=== PATIENT | female | born 1970 | race Caucasian/White ===

== ENCOUNTER → 2019-03-09 | Outpatient (CLI) | payer OTHER, MEDICARE ==
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
== END ==
LOC: RAD 13:12
PROVIDERS: ATTEND Nurse Practitioner
DX: S89.91XD Unspecified injury of right lower leg, subsequent encounter (principal); M17.11 Unilateral primary osteoarthritis, right knee; X58.XXXD Exposure to other specified factors, subsequent encounter
CPT/HCPCS: 73700

== ENCOUNTER → 2019-03-11 | Outpatient (CLI) | payer OTHER, MEDICARE ==
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
== END ==
LOC: RAD FS 15:02
PROVIDERS: ATTEND Nurse Practitioner
DX: M25.522 Pain in left elbow (principal); M25.512 Pain in left shoulder; Z87.828 Personal history of other (healed) physical injury and trauma; Z95.0 Presence of cardiac pacemaker
CPT/HCPCS: 73030; 73080

== ENCOUNTER → 2019-04-08 | Outpatient (CLI) | payer MEDICARE, MEDICAID ==
--- NOTE | 2019-04-08 12:59 | Diagnostic Imaging Report ---
INDICATION: CHF, DYSPNEA, HYPERTROPHIC CARDIOMYOPAHTY COMPARISON: None FINDINGS: Frontal and lateral views of the chest demonstrate normal heart size and pulmonary vascularity. Left-sided AICD is noted. The lungs are clear. There are no signs of infiltrate, pleural effusions or pneumothoraces. The visualized osseous structures show no acute abnormalities. IMPRESSION: 1. No acute process. No signs of infiltrates, effusions or pneumothoraces. Dictated by: Dictated on workstation # [id number]
[2019-04-08 14:03] LABS: ALANINE AMINOTRANSFERASE 17 U/L (0-55); ALKALINE PHOSPHATASE 128 U/L (40-136); BILIRUBIN,TOTAL 0.3 MG/DL (0.1-1.0); BUN/CREATININE RATIO 23; CALCIUM 10.2 MG/DL (8.5-10.1); CARBON DIOXIDE 21 MMOL/L (21-32); CHLORIDE 102 MMOL/L (98-107); CREATININE SERUM 0.83 MG/DL (0.60-1.30); GFR ESTIMATED > 60; GLUCOSE 106 MG/DL (70-105); MAGNESIUM 1.9 MG/DL (1.6-2.4); POTASSIUM 3.5 MMOL/L (3.6-5.0); SODIUM 138 MMOL/L (135-145)
[2019-04-08 14:04] LABS: ALBUMIN 4.9 GM/DL (3.2-4.5); TOTAL PROTEIN 7.9 GM/DL (6.4-8.2)
== END ==
LOC: RAD FS 12:37
PROVIDERS: ATTEND Nurse Practitioner
DX: I50.9 Heart failure, unspecified (principal); I42.2 Other hypertrophic cardiomyopathy; Z95.810 Presence of automatic (implantable) cardiac defibrillator
CPT/HCPCS: 36415; 71046; 80053; 83735; 83880

== ENCOUNTER → 2019-04-27 | Outpatient (CLI) | payer MEDICAID, MEDICARE, OTHER ==
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
== END ==
LOC: RAD 08:32
PROVIDERS: ATTEND Nurse Practitioner
DX: M81.0 Age-related osteoporosis without current pathological fracture (principal); I50.9 Heart failure, unspecified; I42.2 Other hypertrophic cardiomyopathy; R06.00 Dyspnea, unspecified
CPT/HCPCS: 77080; 93306

== ENCOUNTER → 2019-07-16 | Outpatient (CLI) | payer MEDICAID, MEDICARE | LOC: LAB 12:38 | DX: J45.40 Moderate persistent asthma, uncomplicated (principal) | CPT/HCPCS: 36415; 86003 ==

== ENCOUNTER → 2019-07-16 | Outpatient (CLI) | payer MEDICAID, MEDICARE | LOC: LAB 12:40 | PROVIDERS: ATTEND Nurse Practitioner | DX: Z51.81 Encounter for therapeutic drug level monitoring (principal); Z79.899 Other long term (current) drug therapy | CPT/HCPCS: 36415; 80162 ==

== ENCOUNTER → 2019-07-30 | Outpatient (CLI) | payer MEDICARE | LOC: LAB 14:40 | PROVIDERS: ATTEND Nurse Practitioner | DX: Z51.81 Encounter for therapeutic drug level monitoring (principal); Z79.899 Other long term (current) drug therapy | CPT/HCPCS: 36415; 80162 ==

== ENCOUNTER → 2019-08-31 | Outpatient (CLI) | payer MEDICARE | LOC: LAB 12:42 | PROVIDERS: ATTEND Nurse Practitioner | DX: Z01.89 Encounter for other specified special examinations (principal); Z79.899 Other long term (current) drug therapy | CPT/HCPCS: 36415; 80162 ==

== ENCOUNTER 2020-11-07 07:45 | Outpatient (CLI) | payer MEDICARE ==
[~2020-11-07] VITALS: Ht 160 cm; Wt 66.0 kg
[2020-11-07 14:18] VITALS: BP 125/80
[2020-11-07] MEDS ORDERED: IVAB5TAB PO (15:05)
[2020-11-07 15:12] LABS: BASOPHILS % (AUTO) 0 % (0-10); EOSINOPHILS # (AUTO) 0.1 10^3/uL (0.0-0.3); EOSINOPHILS % (AUTO) 2 % (0-10); HEMATOCRIT 38 % (35-52); LYMPHOCYTES # (AUTO) 1.7 10^3/uL (1.0-4.0); LYMPHOCYTES % (AUTO) 20 % (12-44); MEAN CORPUSCULAR HEMOGLOBIN 31 pg (25-34); MEAN CORPUSCULAR HGB CONC 34 g/dL (32-36); MEAN CORPUSCULAR VOLUME 92 fL (80-99); MEAN PLATELET VOLUME 9.4 fL (9.0-12.2); MONOCYTES # (AUTO) 0.7 10^3/uL (0.0-1.0); MONOCYTES % (AUTO) 8 % (0-12); NEUTROPHILS # (AUTO) 6.2 10^3/uL (1.8-7.8); NEUTROPHILS % (AUTO) 71 % (42-75); PLATELET COUNT 257 10^3/uL (130-400); WHITE BLOOD COUNT 8.7 10^3/uL (4.3-11.0)
[2020-11-07 15:24] LABS: POTASSIUM 3.1 MMOL/L (3.6-5.0)
[2020-11-07 15:25] LABS: CALCIUM 9.4 MG/DL (8.5-10.1)
[2020-11-07] MEDS ORDERED: MONT10TA21 PO (15:29)
[2020-11-07] MEDS ORDERED: MULT-141 PO (15:29)
[2020-11-07] MEDS ORDERED: SPIR50TA4 PO (15:29)
[2020-11-07] MEDS ORDERED: LORA-405 SL (15:29)
[2020-11-07] MEDS ORDERED: FAMO40TA6 PO (15:29)
[2020-11-07] MEDS ORDERED: CYCL10TA9 PO (15:29)
[2020-11-07] MEDS ORDERED: MAGN250T13 PO (15:29)
[2020-11-07] MEDS ORDERED: LEVA1.2543 IH (15:29)
[2020-11-07] MEDS ORDERED: FLUT9.9S NSEACH (15:29)
[2020-11-07] MEDS ORDERED: ONDA4TAB11 PO (15:29)
[2020-11-07] MEDS ORDERED: VITA1TAB17 PO (15:29)
[2020-11-07] MEDS ORDERED: POTA20TA8 PO (15:29)
[2020-11-07] MEDS ORDERED: DIGO125T3 PO (15:29)
[2020-11-07] MEDS ORDERED: BIOT5000 PO (15:29)
[2020-11-07] MEDS ORDERED: NF-XOP-HFA INH (15:29)
[2020-11-07] MEDS ORDERED: TORS20TA3 PO (15:29)
[2020-11-07] MEDS ORDERED: CARV3.122 PO (15:29)
[2020-11-07] MEDS ORDERED: LORA10TA7 PO (15:29)
[2020-11-07] MEDS ORDERED: AMIT50TA3 PO (15:29)
[2020-11-07] MEDS ORDERED: ASPI-808 PO (15:29)
[2020-11-07 15:30] LABS: CREATININE SERUM 1.21 MG/DL (0.60-1.30)
== END 2020-11-07 15:33 | disposition home or self-care (01) ==
LOC: PREOP 07:45
PROVIDERS: ATTEND Otolaryngology Otolaryngology/Facial Plastic Surgery
DX: Z01.812 Encounter for preprocedural laboratory examination (principal); Z01.810 Encounter for preprocedural cardiovascular examination; H65.20 Chronic serous otitis media, unspecified ear
CPT/HCPCS: 36415; 80048; 85025; 87081; 93005

== ENCOUNTER 2020-11-10 07:37 | Day surgery (SDC) | payer MEDICAID, MEDICARE ==
[~2020-11-10] VITALS: Ht 160 cm; Wt 66.0 kg
[2020-11-10] VITALS (8 sets, daily range): BP systolic 100–129; BP diastolic 63–98
--- NOTE | 2020-11-10 07:29 | Progress Note-Pre Operative ---
Pre-Operative Progress Note H&P Reviewed The H&P was reviewed, patient examined and no changes noted. Date Seen by Provider: Nov 10, 2020 Time Seen by Provider: 07:30 Date H&P Reviewed: Nov 10, 2020 Time H&P Reviewed: 07:30 Pre-Operative Diagnosis: ADELINE Pimentel MD Nov 10, 2020 07:29
--- NOTE | 2020-11-10 07:30 | Progress Note-Post Operative ---
Post-Operative Progess Note Surgeon (s)/Gimp Buttonhole Machine Operator (s) Surgeon ADELINE REHMAN MD Gimp Buttonhole Machine Operator n/a Pre-Operative Diagnosis Bilat RAMÓN Post-Operative Diagnosis same Post-Op Procedure Note Date of Procedure: Nov 10, 2020 Name of Procedure Performed: Jazzmine MELGAR Description & Findings Description and Findings: n/a Anesthesia Type mask Estimated Blood Loss minimal Packing none. Specimen(s) collected/removed none ADELINE REHMAN MD Nov 10, 2020 07:30
[~2020-11-10 07:37] MED LIST: AMIT50TA3 PO; APAP 325 MG/10.15 ML LIQ (TYLENOL) UDC PO PRN; ASPI-808 PO; BIOT5000 PO; CARV3.122 PO; CYCL10TA9 PO; DIGO125T3 PO; FAMO40TA6 PO; FLUT9.9S NSEACH; IVAB5TAB PO; LACTATED RINGERS 1,000 ML IV PRN; LEVA1.2543 IH; LORA-405 SL; LORA10TA7 PO; MAGN250T13 PO; MONT10TA21 PO; MULT-141 PO; NF-XOP-HFA INH; ONDA4TAB11 PO; POTA20TA8 PO; SPIR50TA4 PO; TORS20TA3 PO; VITA1TAB17 PO
[2020-11-10] MEDS ORDERED: ONDANSETRON 4 MG/2 ML (SDV) Z0FRAN IVP PRN (08:00)
[2020-11-10] MEDS ORDERED: fentaNYL INJ 100 MCG/2 ML AMP IVP ONE (08:00)
--- NOTE | 2020-11-10 08:52 | Anesthesia-General Post-Op ---
General Patient Condition Mental Status/LOC: Same as Preop Cardiovascular: Satisfactory Nausea/Vomiting: Absent Respiratory: Satisfactory Pain: Controlled Complications: Absent Post Op Complications Complications None Follow Up Care/Instructions Patient Instructions None needed. Anesthesia/Patient Condition Patient Condition Patient is doing well, no complaints, stable vital signs, no apparent adverse anesthesia problems. No complications reported per nursing. JANI MILNER CRNA Nov 10, 2020 08:52
[2020-11-10] MEDS ORDERED: GENTAMYCIN OT (08:55)
--- OUTSIDE RECORDS SUMMARY | 2020-11-10 15:06 | XMS REPORT | Encounter Summary ---
Author Author [facility] Organization [facility] Address Unknown Phone Unavailable Care Team Providers Care Taper Operator Name Role Phone Lizz Hollidayily VIRAL PCP Encounter Details Care Team Description Date Type Department Antonio Mc RN ICD (implantable cardioverter-defibrilla tor) in place (Primary Dx) 09/11/2020 Orders Only Cardiology: [facility] [address], [address] [place] [address] Social History Date Tobacco Use Types Packs/Day Years Used Quit: 11/02/2017 Current Every Day Smoker Cigarettes 0.25 22 Smokeless Tobacco: Never Used Comments: Pt reports she is down to one cigarette per day Comments Alcohol Use Standard Drinks/Week ocassional glass of wine/ holiday season s Yes 0 (1 standard drink = 0.6 o z pure alcohol) Sex Assigned at Date Recorded Female 06/21/2020 7:58 AM CDT documented as of this encounter Progress Notes * Antonio Mc RN - 09/11/2020 2:51 PM CDT Images from the original note were not included. Follow up orders - LDB Received: Today Message Contents Andrey Bass RN P Cvm Nurse Ep Patient should have a device check 6 months from his last in office check. Pleas e make sure orders are entered into the patients chart and have scheduling make an appointment. Thank you. documented in this encounter Plan of Treatment Not on filedocumented as of this encounter Results * DEVICE EVALUATION - ICD (11/09/2020 10:32 AM CDT) Atrial Lead active fixation [facility] Fixation Atrial Lead Bipolar [facility] Polarity Atrial Lead Pin IS1 [facility] Connector LV Lead Model # 4543-90 MUR[facility] LV Lead Serial [id number] MUR[facility] # LV Lead Implant 08/09/2010 [facility] Date LV Lead passive fixation M[facility] Fixation RV Lead active fixation M[facility] Fixation Atrial Lead 01/20/2018 [facility] Implant Date RV Lead Implant 01/20/2018 [facility] Date Atrial Lead [facility] 7741-52 [facility] Model # Atrial Lead 955,855 [facility] Serial # RV Lead RV low septum MUR[facility] Location RV Lead Model # ENDOTAK RELIANCE SG 0292-59 MUR[facility] RV Lead Serial 440,304 MUR[facility] # RV Lead Coil Single MUR[facility] LV Lead lateral vein MUR[facility] Location Device Latitude Consult MUR[facility] [place] Transmitter Compatible Atrial Lead 10 [facility] Diaph. Stimulation RV Lead Diaph. 10 [facility]UR[facility] Stimulation Atrial Lead right atrial appendage MURJ Location Generator [employer] [facility] Net Developer Generator Model U331-798-3 MURJ # Generator [id number] MURJ Serial # Generator [id number] MURJ Implnat Date Pacemaker no MURJ Dependant On no MURJ Anticoagulation EP SYSTEM MRI no MURJ CONDITIONAL Device Type VP-D MUR[facility] Specimen Narrative Performed At MUR[facility] Title: Normal In-Office: With Events * Normal Device Function * Events or Alerts: 5 PMT * Battery: OK, 8 years * Sensing, impedance and thresholds rev iewed and tested * Presenting Rhythm: -BiVP 60 bpm * Underlying Rhythm: NSR 60 bpm * Heart Rate Histograms reviewed * Pacing and Detection Parameters were evaluated Additional Notes: Discussed disconnecte d remote monitor. Patient states she has yet to contact [employer] regarding her connection as the cell adapter the sent her is not helpin g with connection. She states she will call them again to discuss. Will flag EP remote team to follow up in one week on this. Title: Pacemaker Mediated Tachycardia ( PMT) * Stored EGMs are consistent with or garcia ggestive of Pacemaker Mediated Tachycardia * Total episodes: 5. Most recent occu rred on 11/03/20 @ 1612, rate of 132 bpm, EGMs suggest ST, algorithm does no t terminate * Stored EGMs reviewed Title: HeartLogic Index: Stable * HeartLogic diagnostics assessed oseasu gh the device * Current HeartLogic HF Index: 3 * No overt HF present Performing Organization Address City/State/ZIP Code P anisha Number MURJ documented in this encounter Visit Diagnoses Diagnosis ICD (implantable cardioverter-defibrill ator) in place - Primary documented in this encounter Additional Health Concerns Assessment Noted Time A fall risk assessment has been completed for the pat ient 12/20/2019 8:07 AM CDT PHQ-2 Depression Total Score: 0 12/14/2019 9:24 AM CDT documented as of this encounter
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
--- OUTSIDE RECORDS SUMMARY | 2020-11-10 15:06 | XMS REPORT | Encounter Summary ---
Author Author [facility] Organization [facility] Address Unknown Phone Unavailable Care Team Providers Care Trimmer And Reinforcer Name Role Phone Miya Shayy VIRAL PCP Reason for Visit * Reason Onset Date Comments Remote Monitoring 09/11/2020 Disconnected Remote Transmitter Questions Encounter Details Care Team Description Date Type Department Andrey Bass RN Remote Monitoring Questions (Disconnecte d Remote Transmitter) 09/11/2020 Telephone Cardiology: [facility] [address] [place] [address] Social History Date Tobacco Use [...] AM CDT documented as of this encounter Miscellaneous Notes * Telephone Encounter - Andrey Bass RN - 11/01/2020 7:29 AM CDT Communication has not been restored as of today. Patient has an upcoming OV with LDB with a device evaluation. Notations have been placed in the appointment com ments to address disconnected monitor, provide the patient with the remote monit oring agreements handout and educated on remote monitoring compliance. Will foll ow up post visit for connectivity status vs deactivation of remote monitoring. D B. * Telephone Encounter - Andrey Bass RN - 10/18/2020 7:25 AM CDT Certified letter card was returned by postal service with patient signature. Sen t for scanning. Tracking history shows it was delivered. Tracking History October 09, 2020, 11:05 [place] [address] Your item was delivered at 11:05 am on October 09, 2020 [place] [address]. October 06, 2020, 8:43 am Held at Post Office, [place] [address] October 06, 2020, 6:28 [place] [address] October 06, 2020, 6:17 am [place] [address] October 05, 2020, 10:39 am Departed [facility] [employer] [place] October 05, 2020, 2:47 am Arrived at [facility] * Telephone Encounter - Andrey Bass RN - 09/27/2020 2:37 PM CDT Communication has not been established as of today. No response from the previou s letter mailed. Mailed certified letter. DB. Certified letter #[phone] * Telephone Encounter - Andrey Bass RN - 09/11/2020 1:32 PM CDT Received notification that [employer] has not been connected si [facility] 10/12/19. Patient was instructed to look at his/her transmitter to make sure that it is plugged into power and send a manual transmission to reconnect the tr ansmitter. If he/she has any questions about how to send a transmission or if [employer] e transmitter does not appear to be working properly, they need to contact the [employer] directly. Patient was provided with that contact number. Requested the patient send us a [employer] message or contact our device nurses at to let us know after they have sent their transmission. Attempted to contact the patient, no answer and no name identified on voicemail therefore no message was left. No active MyChart. Letter was mailed. DB. documented in this encounter Plan of Treatment Not on filedocumented as of this encounter Visit Diagnoses Not on filedocumented in this encounter Additional Health Concerns Assessment Noted Time A fall risk assessment has been completed for the pat ient 12/20/2019 8:07 AM CDT PHQ-2 Depression Total Score: 0 12/14/2019 9:24 AM CDT documented as of this encounter
--- OUTSIDE RECORDS SUMMARY | 2020-11-10 15:06 | XMS REPORT | Encounter Summary ---
Author Author [facility] Organization [facility] Address Unknown Phone Unavailable Care Team Providers Care Pole Framer Machine Name Role Phone Shayy Holliday NP PCP Encounter Details Care Team Description Date Type Department Nurys Owens MD [address] [facility] [place], [place] [id number] Arrived 11/09/2020 Hospital [facility]: [facility] [address] [facility] [address] [place] [address] Social History Date Tobacco Use [...] / COVID-19? documented as of this encounter Plan of Treatment Not on filedocumented as of this encounter Procedures Comments Procedure Name Priority Date/Time Associated Diag nosis DEVICE EVALUATION - ICD Routine 11/09/2020 ICD (i mplantable 10:32 AM CDT cardioverter-defibrillato r) in place documented in this encounter Results * DEVICE EVALUATION - ICD (11/09/2020 10:32 AM CDT) Atrial Lead active fixation M[facility] Fixation Atrial Lead Bipolar MUR[facility] Polarity Atrial Lead Pin IS1 MUR[facility] Connector LV Lead Model # 4543-90 MURJ LV Lead Serial [id number] MURJ # LV Lead Implant 08/09/2010 MUR[facility] Date LV Lead passive fixation MURJ Fixation RV Lead active fixation MURJ Fixation Atrial Lead 01/20/2018 MURJ Implant Date RV Lead Implant 01/20/2018 MURJ Date Atrial Lead INGEVITY MRI 7741-52 MURJ Model # Atrial Lead 955,855 MURJ Serial # RV Lead RV low septum MURJ Location RV Lead Model # ENDOTAK RELIANCE SG 0292-59 MURJ RV Lead Serial 440,304 MURJ # RV Lead Coil Single MURJ LV Lead lateral vein MURJ Location Device Latitude Consult MURJ [place] Transmitter Compatible Atrial Lead 10 MURJ Diaph. Stimulation RV Lead Diaph. 10 MURJ Stimulation Atrial Lead right atrial appendage MURJ Location Generator [employer] MURJ Marble Supervisor Generator Model J729-901-3 MURJ # Generator [id number] MURJ Serial # Generator [id number] MURJ Implnat Date Pacemaker no MURJ Dependant On no MURJ Anticoagulation EP SYSTEM MRI no MURJ CONDITIONAL Device Type CAMP HOUSEKEEPER-D MURJ Specimen Narrative Performed At MUR[facility] Title: [...] Patient states she has yet to contact [employer] regarding her connection as the cell adapter [...] HeartLogic Index: Stable * HeartLogic diagnostics assessed throu gh the device * Current HeartLogic HF Index: 3 * No overt HF present Performing Organization Address City/State/ZIP Code P anisha Number MURJ documented in this encounter Visit Diagnoses Diagnosis ICD (implantable cardioverter-defibrill ator) in place documented in this encounter Additional Health Concerns Assessment Noted Time A fall risk assessment has been completed for the pat ient 11/09/2020 10:05 AM CDT PHQ-2 Depression Total Score: 1 11/09/2020 10:09 AM CDT documented as of this encounter
--- OUTSIDE RECORDS SUMMARY | 2020-11-10 15:06 | XMS REPORT | Encounter Summary ---
Author Author [facility] Organization [facility] Address Unknown Phone Unavailable Care Team Providers Care Attorney Lawyer Name Role Phone Shayy Holliday NP PCP Encounter Details Care Team Description Date Type Department 11/09/2020 Travel Social History Date Tobacco Use Types Packs/Day [...]
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
--- OUTSIDE RECORDS SUMMARY | 2020-11-10 15:06 | XMS REPORT | Encounter Summary ---
Author Author [facility] Organization [facility] Address Unknown Phone Unavailable Care Team Providers Care Senior Technologist Name Role Phone Shayy Holliday NP PCP Reason for Visit * Reason Comments Medication Refill Encounter Details Care Team Description Date Type Department Nurys Owens MD [address] [facility] [address] [place], [place] [id number] Medication Refill 09/28/2020 Refill Cardiology: [facility] [address] [facility], [address] [place] [address] Social History Date Tobacco Use [...] AM CDT documented as of this encounter Ordered Prescriptions Start Date End Date Prescription Sig Dispensed Refills 09/28/2020 digoxin (LANOXIN) 125 mcg Take 1 tablet 90 tablet 0 (0.125 mg) tablet by mouth once daily documented in this encounter Plan of Treatment Not on filedocumented as of this encounter Visit Diagnoses Not on filedocumented in this encounter Discontinued Medications Start Date End Date Medication Sig Discontinue Reason 03/23/2020 09/28/2020 digoxin (LANOXIN) 125 mcg Take 1 (0.125 mg) tablet tablet by mouth once daily documented as of this encounter Additional Health Concerns Assessment Noted Time A fall risk assessment has been completed for the pat ient 12/20/2019 8:07 AM CDT PHQ-2 Depression Total Score: 0 12/14/2019 9:24 AM CDT documented as of this encounter
== END 2020-11-10 09:31 | disposition home or self-care (01) ==
LOC: SDC 07:37
PROVIDERS: ATTEND Otolaryngology Otolaryngology/Facial Plastic Surgery
DX: H65.23 Chronic serous otitis media, bilateral (principal); H69.90 Unspecified Eustachian tube disorder, unspecified ear; I42.9 Cardiomyopathy, unspecified; I50.9 Heart failure, unspecified; J44.9 Chronic obstructive pulmonary disease, unspecified; F43.10 Post-traumatic stress disorder, unspecified; Z79.82 Long term (current) use of aspirin; Z79.899 Other long term (current) drug therapy; Z83.3 Family history of diabetes mellitus
CPT/HCPCS: 36430

== ENCOUNTER → 2021-04-20 | Outpatient (CLI) | payer MEDICARE ==
[~2021-04-20] MED LIST changes: -APAP 325 MG/10.15 ML LIQ (TYLENOL) UDC PO PRN; +CYCL10TA25 PO; -CYCL10TA9 PO; +GENTAMYCIN OT; -LACTATED RINGERS 1,000 ML IV PRN; +POTA-169 PO; -POTA20TA8 PO
--- NOTE | 2021-04-20 12:58 | Diagnostic Imaging Report ---
INDICATION: Chronic neck pain Cervical spine AP and lateral views of the cervical spine shows normal vertebral body height and alignment. There are degenerative disc changes at C5-C6 with disc space narrowing. The other intervertebral disc spaces are well-maintained. There is no fracture. There are no osteolytic lesions seen. IMPRESSION: Degenerative disc changes at C5-C6. Dictated by: Dictated on workstation # [id number]
--- NOTE | 2021-04-20 12:58 | Diagnostic Imaging Report ---
INDICATION: Back pain. AP and lateral views of the lumbar spine are obtained. FINDINGS: Examination of the lumbosacral spine fails to reveal evidence of fracture, dislocation or other bony abnormality. There is normal curvature and alignment. The vertebral bodies and the intervertebral spaces are well maintained. There is transitional L5 vertebra with right pseudoarthrosis. IMPRESSION: No acute abnormalities identified. Dictated by: Dictated on workstation # [id number]
--- NOTE | 2021-04-20 13:00 | Diagnostic Imaging Report ---
INDICATION: Back pain. EXAMINATION: Thoracic spine. FINDINGS: AP and lateral views of the thoracic spine show mild spondylosis of the midthoracic spine with disc space narrowing and small osteophytes forming anteriorly. There are no compression fractures. There is no malalignment. IMPRESSION: Mild spondylosis of the midthoracic spine. No acute abnormality seen. Dictated by: Dictated on workstation # [id number]
== END ==
LOC: RAD 11:59
PROVIDERS: ATTEND Chiropractor
DX: M50.322 Other cervical disc degeneration at C5-C6 level (principal); M47.814 Spondylosis without myelopathy or radiculopathy, thoracic region; M54.50 Low back pain, unspecified; Z85.79 Personal history of other malignant neoplasms of lymphoid, hematopoietic and related tissues
CPT/HCPCS: 72040; 72072; 72100